=== PATIENT | male | born 1960 | race Caucasian/White ===

== ENCOUNTER 2016-06-11 14:15 | Outpatient (CLI) | payer BC ==
--- NOTE | 2016-06-11 14:45 | NUR ---
Patient arrives to room 341 at this time
[2016-06-11] MEDS ORDERED: SODIUM CHLORIDE FLUSH 30 ML ONE (14:50)
--- NOTE | 2016-06-11 15:30 | NUR ---
2 unsuccessful attempts at an IV start. Cab Worker notified
[2016-06-11] MEDS ORDERED: LIDOCAINE PF 1% (XYLOCAINE) 2 ML VIAL INJ ONE (15:52)
--- NOTE | 2016-06-11 16:00 | NUR ---
24 gauge IV started in the left forearm
--- NOTE | 2016-06-11 16:16 | NUR ---
IV fluids infusing at 350 cc/hr
[2016-06-11 16:19] VITALS: BP 119/81
--- NOTE | 2016-06-11 16:30 | NUR ---
Fluids increased to 425cc/hr
--- NOTE | 2016-06-11 17:04 | NUR ---
Fluids increased to 450 cc/hr
--- NOTE | 2016-06-11 17:20 | NUR ---
IV unable to tolerate Bolus infusion. Fluids decreased to 350cc/hr
[2016-06-11 18:16] VITALS: BP 124/79
--- NOTE | 2016-06-11 18:24 | NUR ---
Patient requests to end infusion at this time. IV removed and the patient is escorted out by Dolly CRABTREE
== END 2016-06-11 18:25 | disposition home or self-care (01) ==
LOC: ICU 14:32 → EUOP 18:25
PROVIDERS: ATTEND Nurse Practitioner Family
DX: E86.0 Dehydration (principal); A08.4 Viral intestinal infection, unspecified
CPT/HCPCS: 96360; 96361; J2001; J7030

== ENCOUNTER → 2016-06-11 | Outpatient (REF) | payer BC ==
[~2016-06-11] MED LIST: ALBU8.5H2; AMOX1TAB12 PO; DOXY100T41 PO; HYDR-3754 PO; MOME13HF2 IH; OMEP1CAP25 PO; PRED20TA PO; STERIOD INHALER INH
[2016-06-11 15:05] LABS: BASOPHILS % (AUTO) 0 % (0-2); EOSINOPHILS # (AUTO) 0.3 10^3uL; EOSINOPHILS % (AUTO) 5 % (0-4); MEAN CORPUSCULAR HEMOGLOBIN 30.8 PG (26.0-34.0); MEAN CORPUSCULAR HGB CONC 34.4 g/dL (31.0-37.0); MEAN CORPUSCULAR VOLUME 90 FL (80-100); MEAN PLATELET VOLUME 12.6 FL (6.0-9.5); MONOCYTES # (AUTO) 0.7 X10^3; MONOCYTES % (AUTO) 15 % (3-11); NEUTROPHILS # (AUTO) 2.8 X10^3; NEUTROPHILS % (AUTO) 57 % (51-67); PLATELET COUNT 156 10^3uL (150-450)
[2016-06-11 15:14] LABS: ALBUMIN 3.6 g/dL (3.4-5.0); ANION GAP 15.4 MEQ/L (3-15); CALCULATED IONIZED CALCIUM 4.3 mg/dL (3.8-4.6); TOTAL PROTEIN 6.4 g/dL (6.4-8.5)
== END ==
LOC: LAB 14:50
PROVIDERS: ATTEND Nurse Practitioner Family
DX: J10.2 Influenza due to other identified influenza virus with gastrointestinal manifestations (principal); E86.0 Dehydration
CPT/HCPCS: 80053; 85025

== ENCOUNTER → 2016-09-03 | Outpatient (REF) | payer BC | LOC: LAB 08:35 | PROVIDERS: ATTEND Nurse Practitioner Family | DX: Z00.00 Encounter for general adult medical examination without abnormal findings (principal); R73.09 Other abnormal glucose; R73.03 Prediabetes | CPT/HCPCS: 80061; 83036 ==